=== PATIENT | female | born 1975 | race Caucasian/White ===

== ENCOUNTER 2020-12-26 08:57 | Outpatient (CLI) | payer OTHER, SELFPAY ==
[2020-12-30 17:09] LABS: Lamotrigine Lamictal 2.3 mcg/mL (4.0-18.0)
== END 2020-12-26 08:58 | disposition home or self-care (01) ==
DX: Z79.899 Other long term (current) drug therapy (principal)
CPT/HCPCS: 36415; 80175

== ENCOUNTER 2021-03-11 10:16 | Emergency (ER) | payer OTHER, SELFPAY ==
--- NOTE | ~2021-03-11 | XR_ITS ---
EXAMINATION: XR wrist RT min 3V DATE: 03/11/2021 10:45 INDICATION: Radial sided right wrist pain post fall one week prior TECHNIQUE: Posteroanterior, ulnar deviation, oblique, and lateral views of the right wrist were obtai jonelle. COMPARISON: none FINDINGS: 3 mm ulnar positive variance noted alignment is otherwise normal. No fracture. Mild cystic change at the ulnar margin of the proximal articular surface of the lunate likely related to ulnocarpal impacti on. 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 IMPRESSION: 1. No acute osseous abnormality. 2. 3 mm ulnar positive variance with mild cystic change along the proximal lunate consistent with uln ocarpal impaction. Reviewed, dictated and finalized at location A. IMPRESSION: 1. No acute osseous abnormality. 2. 3 mm ulnar positive variance with mild cystic change along the proximal jose juan te consistent with ulnocarpal impaction.
[2021-03-11 10:22] VITALS: BP 168/86; PULSE 80; RESP 14; TEMP 36.5; O2SAT 100
--- NOTE | 2021-03-11 12:19 | ED.GENADULT ---
HPI - General Adult General Chief complaint: Extremity Injury, Upper <Serafin Nolan PA-C - Last Filed: 03/11/21 12:34> Stated complaint: wrist injury <Serafin Nolan PA-C - Last Filed: 03/11/21 12:34> Time Seen by Provider: 03/11/21 11:06 <Serafin Nolan PA-C - Last Filed: 03/11/21 12:34> Source: patient and RN notes reviewed <Serafin Nolan PA-C - Last Filed: 03/11/21 12:34> Mode of arrival: ambulatory <Serafin Nolan PA-C - Last Filed: 03/11/21 12:34> Limitations: no limitations <Serafin Nolan PA-C - Last Filed: 03/11/21 12:34> History of Present Illness HPI narrative: Patient is a 45-year-old female who presents to emergency department for evaluation of right wrist injury that occurred several days prior when she fell backwards caught herself with the right wrist has since had pain along the radial aspect of the base of the thumb and the wrist denies other pain or complaints presents nondistressed does not take anything for her symptoms denies any radicular symptoms or paresthesias <Serafin Nolan PA-C - Last Filed: 03/11/21 12:34> Related Data Allergies/adverse reactions: Allergies Allergy/AdvReac Type Severity Reaction Status Date / Time sertraline [From Zoloft] AdvReac Fainting Verified 03/11/21 11:08 <Serafin Nolan PA-C - Last Filed: 03/11/21 12:34> Review of Systems Review of Systems: All systems reviewed & are unremarkable except as noted in HPI and below <Serafin Nolan PA-C - Last Filed: 03/11/21 12:34> PMFSH Past Medical History Medical History: Medical History Anxiety Depression <ANGELINA Angel Last Filed: 03/11/21 12:34> Exam Narrative: GENERAL: Well-appearing, well-nourished, and in no acute distress. HEAD: Normocephalic, atraumatic. EYES: PERRLA and EOMI. ENT: Nares clear, no rhinorrhea or epistaxis. Mucous membranes moist. CHEST: Clear to auscultation. No respiratory distress. No wheezes rales or rhonchi HEART: Regular rate and rhythm. No murmur heard. Normal peripheral pulses.. EXTREMITIES: Tenderness of the radial aspect of the right wrist as well as at the base of the thumb there is no bruising swelling or deformity no tenderness along the ulnar aspect SKIN: Warm, dry, no rash. NEURO: No focal deficits. Alert and oriented x3. Neurovascularly intact. Capillary refill less than 2 seconds PSYCH: Normal mood and affect. <ANGELINA Angel Last Filed: 03/11/21 12:34> Course Course Emergency Course: Patient placed in thumb spica splint will be referred to orthopedic surgery she agrees with this treatment plan ABCs and vital signs intact and stable afebrile nontoxic-appearing nondistressed <ANGELINA Angel Last Filed: 03/11/21 12:34> Vital Signs Vital signs: Vital Signs Temperature 97.7 F 03/11/21 10:22 Pulse Rate 80 03/11/21 10:22 Respiratory Rate 14 03/11/21 10:22 Blood Pressure 168/86 H 03/11/21 10:22 Pulse Oximetry 100 03/11/21 10:22 Temperature 97.7 F 03/11/21 12:49 Pulse Rate 80 03/11/21 12:49 Respiratory Rate 14 03/11/21 12:49 Blood Pressure 146/67 H 03/11/21 12:49 Pulse Oximetry 97 03/11/21 12:49 <ANGELINA Angel Last Filed: 03/11/21 12:34> Procedures Orthopedic Splinting/Casting Injury #1: Splinting/Casting Date: 03/11/21 <ANGELINA Angel Last Filed: 03/11/21 12:34> Splinting/Casting Time: 12:21 <ANGELINA Angel Last Filed: 03/11/21 12:34> Side: right <ANGELINA Angel Last Filed: 03/11/21 12:34> Upper Extremity Injury Location: wrist <ANGELINA Angel Last Filed: 03/11/21 12:34> Splint: customized in ED <ANGELINA Angel Last Filed: 03/11/21 12:34> OCL: thumb spica <Serafin Nolan PA-C - Last Filed: 03/11/21 12:34> Pre-Procedure Neur
[2021-03-11 12:49] VITALS: BP 146/67; PULSE 80; RESP 14; TEMP 36.5; O2SAT 97
== END 2021-03-11 12:51 | disposition home or self-care (01) ==
PROVIDERS: Emergency Provider General Practice
DX: S69.91XA Unspecified injury of right wrist, hand and finger(s), initial encounter (principal); W19.XXXA Unspecified fall, initial encounter
CPT/HCPCS: 29125; 73110; 99283